=== PATIENT | male | born 1945 | race Caucasian/White ===

== ENCOUNTER 2022-01-29 07:56 | Emergency (ER) | payer MEDICARE, BC ==
[2022-01-29 09:17] LABS: ESTIMATED GFR 69 mL/min (>60)
[2022-01-29] MEDS ORDERED: Iopamidol 612 MG/ML 200 ML Bottle IV ONE (09:42)
[2022-01-29] MEDS ORDERED: Sodium Chloride 0.9% 75 ML IV SCH (09:45)
[2022-01-29] MEDS ORDERED: metroNIDAZOLE/Normal Saline 500 MG in Premix Bag 1 BAG IV ONE (12:14)
[2022-01-29] MEDS ORDERED: Sodium Chloride 0.9% 1,000 ML IV SCH ×2 (12:15→16:50)
[2022-01-29] MEDS ORDERED: cefTRIAXone 2 GM in Sodium Chloride 0.9% 50 ML IV ONE (12:15)
== END 2022-01-29 17:09 ==
LOC: JP.ED 07:56
DX: K80.42 Calculus of bile duct with acute cholecystitis without obstruction (principal); I25.10 Atherosclerotic heart disease of native coronary artery without angina pectoris; E78.00 Pure hypercholesterolemia, unspecified; I10 Essential (primary) hypertension; I25.2 Old myocardial infarction; K21.9 Gastro-esophageal reflux disease without esophagitis; Z79.82 Long term (current) use of aspirin; Z79.899 Other long term (current) drug therapy; Z79.02 Long term (current) use of antithrombotics/antiplatelets; Z20.822 Contact with and (suspected) exposure to COVID-19
CPT/HCPCS: 36415; 74177; 80053; 81001; 82150; 83605; 83690; 84484; 85025; 86140; 87040; 93005; 96361; 96365; 96367; 99285; J0696; J3490; J7030; Q9967; U0002; 93010

== ENCOUNTER 2022-02-05 11:47 | Emergency (ER) | payer MEDICARE, BC | END 2022-02-05 12:49 | disposition home or self-care (01) | LOC: JP.ED 11:47 | DX: L76.82 Other postprocedural complications of skin and subcutaneous tissue (principal); E78.00 Pure hypercholesterolemia, unspecified; I10 Essential (primary) hypertension; I25.2 Old myocardial infarction; Z79.82 Long term (current) use of aspirin; K21.9 Gastro-esophageal reflux disease without esophagitis; Z79.02 Long term (current) use of antithrombotics/antiplatelets; Z79.899 Other long term (current) drug therapy; Z95.1 Presence of aortocoronary bypass graft | CPT/HCPCS: 99282 ==

== ENCOUNTER 2022-10-18 09:59 | Emergency (ER) | payer MEDICARE, BC ==
[2022-10-18 10:50] LABS: BASOPHILS PERCENT AUTO 0.3 % (0.1-1.3); EOSINOPHILS ABSOLUTE AUTO 0.08 K/uL (0.00-0.40); EOSINOPHILS PERCENT AUTO 1.3 % (0.0-5.4); HEMATOCRIT 35.7 % (38.4-49.7); HEMOGLOBIN 12.3 g/dL (12.9-16.9); IMMATURE GRAN PERCENT AUTO 0.3 % (0.0-0.7); LYMPHOCYTES ABSOLUTE AUTO 0.83 K/uL (0.8-3.3); LYMPHOCYTES PERCENT AUTO 13.2 % (11.4-47.7); MEAN CORPUSCULAR HEMOGLOBIN 35.4 pg (31.6-35.5); MEAN CORPUSCULAR HGB CONC 34.5 g/dL (31.6-35.5); MEAN CORPUSCULAR VOLUME 102.9 fL (81.4-99.0); MONOCYTES ABSOLUTE AUTO 0.93 K/uL (0.20-0.90); MONOCYTES PERCENT AUTO 14.8 % (3.3-12.6); NEUTROPHILS ABSOLUTE AUTO 4.39 K/uL (1.0-7.6); NEUTROPHILS PERCENT AUTO 70.1 % (40.0-78.1); PLATELET COUNT,PLT 124 K/uL (130-375); RED BLOOD CELL COUNT 3.47 M/uL (4.14-5.76); WHITE BLOOD CELL COUNT,WBC 6.3 K/uL (3.2-11.0)
[2022-10-18 10:51] LABS: BASOPHILS ABSOLUTE AUTO 0.02 K/uL (0.00-0.10); IMMATURE GRAN ABSOLUTE AUTO 0.02 K/uL (0.00-0.23)
[2022-10-18 11:07] LABS: PROTHROMBIN TIME 10.5 sec (9.2-10.6)
[2022-10-18 11:12] LABS: A/G RATIO 1.1 (1.2-2.2); ALANINE AMINOTRANSFERASE,ALT 22 U/L (12-78); ALBUMIN 3.3 g/dL (3.4-5.0); ALKALINE PHOSPHATASE 55 U/L (46-116); ASPARTATE AMNIOTRANSFERASE,AST 25 U/L (15-37); BILIRUBIN TOTAL 1.9 mg/dL (0.2-1.0); BLOOD UREA NITROGEN,BUN 17 mg/dL (7-18); CALCIUM 8.1 mg/dL (8.5-10.1); CARBON DIOXIDE,CO2 27 mmol/L (21-32); CHLORIDE,CL 99 mmol/L (100-108); CREATININE 0.9 mg/dL (0.8-1.3); EST CRCL DRUG DOSING (CG) 67.65 mL/min; ESTIMATED GFR 87 mL/min (>60); GLUCOSE RANDOM 111 mg/dL (74-106); PROTEIN TOTAL,TP 6.4 g/dL (6.4-8.2); SODIUM,NA 133 mmol/L (140-148)
[2022-10-18] MEDS ORDERED: levETIRAcetam 500 MG in Sodium Chloride 0.9% 100 ML IV ONE (11:15)
[2022-10-18] MEDS ORDERED: Desmopressin 20 MCG in Sodium Chloride 0.9% 50 ML IV ONE (11:16)
== END 2022-10-18 12:10 | disposition other institution (70) ==
LOC: JP.ED 09:59
DX: S06.5X1A Traumatic subdural hemorrhage with loss of consciousness of 30 minutes or less, initial encounter (principal); S06.371A Contusion, laceration, and hemorrhage of cerebellum with loss of consciousness of 30 minutes or less, initial encounter; S40.011A Contusion of right shoulder, initial encounter; E78.00 Pure hypercholesterolemia, unspecified; I10 Essential (primary) hypertension; I25.2 Old myocardial infarction; K21.9 Gastro-esophageal reflux disease without esophagitis; Z79.899 Other long term (current) drug therapy; Z79.82 Long term (current) use of aspirin; Z79.02 Long term (current) use of antithrombotics/antiplatelets; W22.8XXA Striking against or struck by other objects, initial encounter
CPT/HCPCS: 36415; 70450; 80053; 82947; 85025; 85610; 96365; 96375; 99285; J1953; J2597; J3490